=== PATIENT | female | born 1990 | race Caucasian/White ===

== ENCOUNTER 2016-06-15 13:33 | Emergency (ER) | payer OTHER ==
[~2016-06-15] VITALS: Wt 113.4 kg
[~2016-06-15 13:33] MED LIST changes: -LIDEX 0.05% CRE15 GM T
[2016-06-15] MEDS ORDERED: LIDEX 0.05% CRE15 GM T (14:43)
== END 2016-06-15 14:58 | disposition home or self-care (01) ==
LOC: ED 13:33
DX: R21 Rash and other nonspecific skin eruption (principal); F17.200 Nicotine dependence, unspecified, uncomplicated; Z79.899 Other long term (current) drug therapy

== ENCOUNTER → 2016-06-15 | Outpatient (CLI) | payer OTHER ==
[~2016-06-15] MED LIST: ADDERALL 20 MG20 MG PO; FLONASE0.05 MG/AC NS; HYCODAN/HYDROMET5 ML PO; LIDEX 0.05% CRE15 GM T; LIDOCAINE VISC100 M2 PO; MOTRIN800 MG PO; NKHM; PROVENTIL0.09 MG/A1 INH; WYMOX500 MG PO; ZITHROMAX250 MG PO
[2016-06-15 13:24] LABS: BASO % 0.3 % (0.0-1.0); EOS # 0.2 10*3/uL (0.0-0.4); EOS % 2.8 % (1.0-4.0); HEMATOCRIT 41.1 % (37.0-47.0); HEMOGLOBIN 13.9 g/dl (12.0-16.0); LYMPH # 1.9 10*3/uL (1.3-4.4); LYMPH % 26.7 % (27.0-41.0); MEAN CELL VOLUME 90.3 fl (81.0-99.0); MEAN CORPUSCULAR HGB 30.5 pg (27.0-31.0); MEAN CORPUSCULAR HGB CONC 33.8 g/dl (33.0-37.0); MEAN PLATELET VOLUME 11.4 fl (9.6-12.3); MONO # 0.4 10*3/uL (0.1-1.0); MONO % 6.1 % (3.0-9.0); NEUT # 4.6 10*3/uL (2.3-7.9); PLATELET COUNT AUTOMATED 157 10*3/uL (130-400); RED BLOOD COUNT 4.55 10*6/uL (4.10-5.10); RED CELL DISTRI WIDTH 13.1 % (0-14.5); WHITE BLOOD COUNT 7.2 10*3/uL (4.8-10.8)
[2016-06-15 13:42] LABS: HEMOGLOBIN A1c 5.5 % (4.8-5.6)
[2016-06-15 13:59] LABS: ALBUMIN 3.7 gm/dl (3.1-4.5); ALKALINE PHOSPHATASE 71 U/L (45-117); BILIRUBIN, TOTAL 0.3 mg/dl (0.2-1.0); BUN 12 mg/dl (7-24); CARBON DIOXIDE 26 mmol/L (21-32); CHLORIDE 107 mmol/L (98-107); EST GLOM FILT AFRICAN AMERICAN > 60 ml/min; GLUCOSE 76 mg/dL (65-99); POTASSIUM 4.1 mmol/L (3.5-5.1); SGOT/AST 17 IU/L (3-35); SGPT/ALT 26 U/L (12-78); SODIUM 138 mmol/L (136-145); TOTAL PROTEIN 7.5 gm/dL (6.4-8.2)
[2016-06-15 14:23] LABS: THYROID STIM HORMONE (HS) 0.761 uIU/ml (0.358-4.75)
[2016-06-15 14:32] LABS: VITAMIN D, 25-HYDROXY 14.1 ng/mL (30-100)
[2016-06-15 14:33] LABS: FOLIC ACID 21.59 ng/mL (>5.38)
== END | disposition home or self-care (01) ==
LOC: LAB 12:37
PROVIDERS: Physician Assistant
DX: Z79.899 Other long term (current) drug therapy (principal)

== ENCOUNTER 2017-08-20 18:14 | Emergency (ER) | payer OTHER ==
[~2017-08-20] VITALS: Ht 170.1 cm; Wt 131.5 kg
[~2017-08-20 18:14] MED LIST changes: +LIDEX 0.05% CRE15 GM T
[2017-08-20 19:19] LABS: BASO % 0.2 % (0.0-1.0); EOS # 0.2 10*3/uL (0.0-0.4); EOS % 2.9 % (1.0-4.0); HEMATOCRIT 40.9 % (37.0-47.0); HEMOGLOBIN 12.9 g/dl (12.0-16.0); LYMPH # 1.7 10*3/uL (1.3-4.4); LYMPH % 26.2 % (27.0-41.0); MEAN CORPUSCULAR HGB 29.3 pg (27.0-31.0); MEAN CORPUSCULAR HGB CONC 31.5 g/dl (33.0-37.0); MEAN PLATELET VOLUME 11.8 fl (9.6-12.3); MONO # 0.4 10*3/uL (0.1-1.0); MONO % 6.7 % (3.0-9.0); NEUT # 4.2 10*3/uL (2.3-7.9); NEUT % 63.8 % (47.0-73.0); PLATELET COUNT AUTOMATED 131 10*3/uL (130-400); RED CELL DISTRI WIDTH 14.4 % (0-14.5); WHITE BLOOD COUNT 6.5 10*3/uL (4.8-10.8)
[2017-08-20 19:29] LABS: ACT PARTIAL THROMBO TIME 22.7 SECONDS (20.8-31.5); INTERNATIONAL NORM RATIO 0.9 (2.0-3.5)
[2017-08-20 19:34] LABS: ALBUMIN 3.4 gm/dl (3.1-4.5); ALKALINE PHOSPHATASE 88 U/L (45-117); BUN 8 mg/dl (7-24); CHLORIDE 107 mmol/L (98-107); CREATININE 0.84 mg/dL (0.55-1.02); LIPASE 91 U/L (73-393); POTASSIUM 4.1 mmol/L (3.5-5.1); SGOT/AST 24 IU/L (3-35); SGPT/ALT 34 U/L (12-78); SODIUM 143 mmol/L (136-145); TOTAL PROTEIN 7.1 gm/dL (6.4-8.2); TROPONIN I < 0.015 ng/ml (<0.045)
[2017-08-20 19:40] LABS: BILIRUBIN NEGATIVE (NEGATIVE); BLOOD NEGATIVE (NEGATIVE); CLARITY SL CLOUDY (CLEAR); COLOR YELLOW (YELLOW); GLUCOSE NEGATIVE (NEGATIVE); KETONE TRACE (NEGATIVE); LEUKO ESTERASE NEGATIVE (NEGATIVE); NITRITE NEGATIVE (NEGATIVE); SPECIFIC GRAVITY 1.015 (1.005-1.030); UROBILINOGEN 0.2 E.U./dl (0.2-1.0)
[2017-08-20 20:08] LABS: MUCOUS TRACE; RBC 0-2 rbc/hpf (0-2)
== END 2017-08-20 21:24 | disposition home or self-care (01) ==
LOC: ED 18:14
PROVIDERS: Nurse Practitioner Family
DX: R60.0 Localized edema (principal); Z79.899 Other long term (current) drug therapy

== ENCOUNTER 2020-11-30 11:39 | Emergency (ER) | payer OTHER ==
[~2020-11-30] VITALS: Wt 127.0 kg
[2020-11-30] MEDS ORDERED: CEPHALEXIN500 M1 PO (13:26)
[2020-11-30] MEDS ORDERED: TYLENOL325 M1 PO (13:26)
[2020-11-30] MEDS ORDERED: NAPROXEN250 MG PO (13:26)
== END 2020-11-30 13:44 | disposition home or self-care (01) ==
LOC: ED 11:39
DX: L02.31 Cutaneous abscess of buttock (principal); K64.4 Residual hemorrhoidal skin tags; Z79.899 Other long term (current) drug therapy

== ENCOUNTER → 2021-01-07 | Outpatient (CLI) | payer OTHER ==
[~2021-01-07] MED LIST changes: +CEPHALEXIN500 M1 PO; +NAPROXEN250 MG PO; +TYLENOL325 M1 PO
== END | disposition home or self-care (01) ==
LOC: CARD 10:44
PROVIDERS: ATTEND Nurse Practitioner
DX: Z51.81 Encounter for therapeutic drug level monitoring (principal); Z79.899 Other long term (current) drug therapy

== ENCOUNTER 2021-04-27 21:29 | Emergency (ER) | payer OTHER ==
[~2021-04-27] VITALS: Ht 165.1 cm; Wt 146.5 kg
[2021-04-27 22:38] LABS: BILIRUBIN Negative (Negative); BLOOD Negative (Negative); CLARITY Clear (Clear); COLOR Yellow (Yellow); GLUCOSE Negative (Negative); KETONE Negative (Negative); LEUKO ESTERASE Negative (Negative); NITRITE Negative (Negative)
[2021-04-27 22:54] LABS: BACTERIA TRACE; WBC 0-2 wbc/hpf (0-5)
[2021-04-27] MEDS ORDERED: IBUPROFEN600 MG PO (22:54)
[2021-04-27] MEDS ORDERED: METHOCARBAMOL500 M1 PO (22:54)
== END 2021-04-28 00:31 | disposition home or self-care (01) ==
LOC: ED 21:29
PROVIDERS: Physician Assistant
DX: S33.5XXA Sprain of ligaments of lumbar spine, initial encounter (principal); Z79.899 Other long term (current) drug therapy; X58.XXXA Exposure to other specified factors, initial encounter; Y93.89 Activity, other specified; Y92.89 Other specified places as the place of occurrence of the external cause; Y99.8 Other external cause status

== ENCOUNTER 2021-05-11 07:45 | Observation (INO) | payer OTHER ==
[~2021-05-11] VITALS: Ht 167.6 cm; Wt 149.3 kg
[~2021-05-11 07:45] MED LIST changes: +IBUPROFEN600 MG PO; +METHOCARBAMOL500 M1 PO
[2021-05-11 07:49] VITALS: BP 137/89
[2021-05-11 08:22] LABS: BASO % 0.2 % (0.0-1.0); EOS # 0.1 10*3/uL (0.0-0.4); EOS % 1.9 % (1.0-4.0); HEMATOCRIT 39.4 % (37.0-47.0); LYMPH # 1.4 10*3/uL (1.3-4.4); LYMPH % 22.5 % (27.0-41.0); MEAN CORPUSCULAR HGB 28.5 pg (27.0-31.0); MEAN CORPUSCULAR HGB CONC 31.7 g/dl (33.0-37.0); MEAN PLATELET VOLUME 11.3 fl (9.6-12.3); MONO # 0.5 10*3/uL (0.1-1.0); MONO % 8.5 % (3.0-9.0); NEUT # 4.2 10*3/uL (2.3-7.9); NEUT % 66.6 % (47.0-73.0); PLATELET COUNT AUTOMATED 139 10*3/uL (130-400); RED BLOOD COUNT 4.38 10*6/uL (4.10-5.10); WHITE BLOOD COUNT 6.3 10*3/uL (4.8-10.8)
[2021-05-11 08:28] LABS: BILIRUBIN Negative (Negative); BLOOD 1+ (Negative); CLARITY Clear (Clear); COLOR Yellow (Yellow); GLUCOSE Negative (Negative); KETONE Trace (Negative); LEUKO ESTERASE Negative (Negative); NITRITE Negative (Negative); SPECIFIC GRAVITY >= 1.030 (1.001-1.030)
[2021-05-11 08:40] LABS: BACTERIA 2+; MUCOUS 1+; RBC 0-2 rbc/hpf (0-2); WBC 0-2 wbc/hpf (0-5)
[2021-05-11 08:56] LABS: ALKALINE PHOSPHATASE 70 U/L (45-117); BUN 13 mg/dl (7-24); CHLORIDE 105 mmol/L (98-107); CREATININE 0.76 mg/dL (0.55-1.02); LIPASE 65 U/L (73-393); POTASSIUM 3.7 mmol/L (3.5-5.1); SGOT/AST 22 IU/L (3-35); SGPT/ALT 32 U/L (12-78); SODIUM 137 mmol/L (136-145); TOTAL PROTEIN 7.2 gm/dL (6.4-8.2)
[2021-05-11 08:59] LABS: B-hCG (QUALITATIVE) NEGATIVE (NEGATIVE)
[2021-05-11 10:16] LABS: URINE AMPHETAMINES < 1000 (1000ng/ml); URINE BARBITURATES < 200 (200ng/ml); URINE BENZODIAZEPINES < 200 (200ng/ml); URINE CANNABINOIDS (THC) > 50 (50ng/ml); URINE COCAINE < 300 (300ng/ml); URINE METHADONE < 300 (300ng/ml); URINE OPIATES < 300 (300ng/ml)
[2021-05-11 10:22] LABS: URINE PHENCYCLIDINE < 25 (25ng/ml)
[2021-05-11 10:46] VITALS: BP 126/70
[2021-05-11 12:00] VITALS: BP 138/59; BP 140/52
[2021-05-11 16:00] VITALS: BP 132/68
[2021-05-11 20:00] VITALS: BP 130/77
[2021-05-12 00:30] VITALS: BP 141/68
[2021-05-12 06:16] LABS: BASO % 0.2 % (0.0-1.0); EOS # 0.1 10*3/uL (0.0-0.4); EOS % 2.9 % (1.0-4.0); HEMATOCRIT 38.9 % (37.0-47.0); LYMPH # 1.4 10*3/uL (1.3-4.4); LYMPH % 28.7 % (27.0-41.0); MEAN CELL VOLUME 89.8 fl (81.0-99.0); MEAN CORPUSCULAR HGB 28.9 pg (27.0-31.0); MEAN CORPUSCULAR HGB CONC 32.1 g/dl (33.0-37.0); MEAN PLATELET VOLUME 11.8 fl (9.6-12.3); MONO # 0.4 10*3/uL (0.1-1.0); NEUT # 2.8 10*3/uL (2.3-7.9); PLATELET COUNT AUTOMATED 151 10*3/uL (130-400); RED BLOOD COUNT 4.33 10*6/uL (4.10-5.10); WHITE BLOOD COUNT 4.8 10*3/uL (4.8-10.8)
[2021-05-12 06:40] LABS: CHLORIDE 109 mmol/L (98-107); CHOLESTEROL 185 mg/dL (<200); CREATININE 0.68 mg/dL (0.55-1.02); POTASSIUM 3.5 mmol/L (3.5-5.1); SODIUM 141 mmol/L (136-145); TRIGLYCERIDES 143 mg/dl (<150)
[2021-05-12 06:50] LABS: BUN 9 mg/dl (7-24); LDL CHOLESTEROL 123 mg/dL (9-159); THYROID STIM HORMONE (HS) 0.829 uIU/ml (0.358-4.75)
[2021-05-12 08:00] VITALS: BP 126/86
[2021-05-12 12:00] VITALS: BP 139/94
[2021-05-12] MEDS ORDERED: PROTONIX TR40 M1 PO (15:45)
[2021-05-12] MEDS ORDERED: Carafate1 GM PO (15:45)
[2021-05-12 16:00] VITALS: BP 124/72
== END 2021-05-12 17:30 | disposition home or self-care (01) ==
LOC: ED 07:45 → 4E 09:39 → EDHOLD 09:39 → 4E 09:39
PROVIDERS: Emergency Medicine; Internal Medicine; ADMIT Emergency Medicine; ATTEND Emergency Medicine
DX: K52.9 Noninfective gastroenteritis and colitis, unspecified (principal); E66.01 Morbid (severe) obesity due to excess calories; F17.210 Nicotine dependence, cigarettes, uncomplicated; F12.10 Cannabis abuse, uncomplicated; R73.9 Hyperglycemia, unspecified; Z79.899 Other long term (current) drug therapy; Z68.43 Body mass index [BMI] 50.0-59.9, adult

== ENCOUNTER 2021-07-04 12:44 | Emergency (ER) | payer OTHER ==
[~2021-07-04] VITALS: Ht 170.1 cm; Wt 127.0 kg
[~2021-07-04 12:44] MED LIST changes: +Carafate1 GM PO; +PROTONIX TR40 M1 PO
[2021-07-04] MEDS ORDERED: CEPHALEXIN500 M1 PO (14:57)
== END 2021-07-04 15:10 | disposition home or self-care (01) ==
LOC: ED 12:44
DX: L02.415 Cutaneous abscess of right lower limb (principal); Z90.49 Acquired absence of other specified parts of digestive tract; Z90.89 Acquired absence of other organs; F17.210 Nicotine dependence, cigarettes, uncomplicated

== ENCOUNTER 2022-01-05 11:38 | Emergency (ER) | payer SELFPAY ==
[~2022-01-05] VITALS: Ht 170.1 cm; Wt 117.9 kg
== END 2022-01-05 13:37 | disposition home or self-care (01) ==
LOC: ED 11:38
DX: S80.01XA Contusion of right knee, initial encounter (principal); F17.210 Nicotine dependence, cigarettes, uncomplicated; Z79.2 Long term (current) use of antibiotics; Z79.899 Other long term (current) drug therapy; Z90.49 Acquired absence of other specified parts of digestive tract; W18.43XA Slipping, tripping and stumbling without falling due to stepping from one level to another, initial encounter; Y93.01 Activity, walking, marching and hiking; Y92.512 Supermarket, store or market as the place of occurrence of the external cause; Y99.8 Other external cause status

== ENCOUNTER 2022-12-06 17:27 | Emergency (ER) | payer SELFPAY ==
[~2022-12-06] VITALS: Ht 167.6 cm; Wt 127.0 kg
[2022-12-06] MEDS ORDERED: BUPRENORPHINE HY8 MG SL (17:50)
[2022-12-06 18:27] LABS: BASO % 0.2 % (0.0-1.0); EOS # 0.1 10*3/uL (0.0-0.4); EOS % 2.2 % (1.0-4.0); HEMATOCRIT 38.2 % (37.0-47.0); LYMPH # 1.6 10*3/uL (1.3-4.4); LYMPH % 27.8 % (27.0-41.0); MEAN CORPUSCULAR HGB 31.6 pg (27.0-31.0); MEAN CORPUSCULAR HGB CONC 33.2 g/dl (33.0-37.0); MEAN PLATELET VOLUME 11.3 fl (9.6-12.3); MONO # 0.4 10*3/uL (0.1-1.0); MONO % 6.7 % (3.0-9.0); NEUT # 3.7 10*3/uL (2.3-7.9); NEUT % 62.9 % (47.0-73.0); PLATELET COUNT AUTOMATED 130 10*3/uL (130-400); RED BLOOD COUNT 4.02 10*6/uL (4.10-5.10); RED CELL DISTRI WIDTH 13.4 % (0-14.5); WHITE BLOOD COUNT 5.8 10*3/uL (4.8-10.8)
[2022-12-06 18:47] LABS: ALKALINE PHOSPHATASE 81 U/L (46-116); BUN 8 mg/dl (9-23); CHLORIDE 106 mmol/L (98-107); SGPT/ALT 21 U/L (5-49); TOTAL PROTEIN 7.1 gm/dL (6.0-8.0)
[2022-12-06] MEDS ORDERED: VIBRAMYCIN100 MG PO (19:08)
== END 2022-12-06 19:30 | disposition home or self-care (01) ==
LOC: ED 17:27
PROVIDERS: Nurse Practitioner
DX: L03.116 Cellulitis of left lower limb (principal); L03.115 Cellulitis of right lower limb; M79.605 Pain in left leg; M79.604 Pain in right leg; Z90.49 Acquired absence of other specified parts of digestive tract; Z90.89 Acquired absence of other organs; Z98.890 Other specified postprocedural states; F12.10 Cannabis abuse, uncomplicated; F17.290 Nicotine dependence, other tobacco product, uncomplicated

== ENCOUNTER → 2022-12-07 | Outpatient (CLI) | payer SELFPAY ==
[~2022-12-07] MED LIST changes: +BUPRENORPHINE HY8 MG SL; +VIBRAMYCIN100 MG PO
== END | disposition home or self-care (01) ==
LOC: US 12:45
PROVIDERS: ATTEND Nurse Practitioner
DX: M79.661 Pain in right lower leg (principal); M79.662 Pain in left lower leg; R60.9 Edema, unspecified; L03.90 Cellulitis, unspecified; R06.02 Shortness of breath; L60.8 Other nail disorders